=== PATIENT | female | born 1960 | race African-American/Black ===

== ENCOUNTER 2024-09-10 15:46 | Emergency (ER) | payer MEDICARE, MEDICAID ==
[~2024-09-10] VITALS: Ht 157.5 cm; Wt 50.0 kg
[2024-09-10 15:48] VITALS: BP 103/62; PULSE 105; RESP 18; TEMP 36.8; O2SAT 99
== END 2024-09-10 20:24 | disposition home or self-care (01) ==
LOC: ER 15:46
DX: J44.1 Chronic obstructive pulmonary disease with (acute) exacerbation (principal); Z79.01 Long term (current) use of anticoagulants
CPT/HCPCS: 93005; 99283